=== PATIENT | female | born 1960 | race Two or more races ===

== ENCOUNTER 2024-10-26 07:38 | Emergency (ER) | payer BC ==
[~2024-10-26] VITALS: Ht 165.1 cm; Wt 61.2 kg
[2024-10-26] MEDS ORDERED: PROZAC10 MG PO (07:44)
[2024-10-26] MEDS ORDERED: LOSARTAN POTASS25 MG PO (07:44)
[2024-10-26] MEDS ORDERED: 0.9 % SODIUM CHLORIDE 1,000 ML IV ONE (09:15)
[2024-10-26] MEDS ORDERED: KETOROLAC TROMETHAMINE 15 MG VIAL IV ONE (09:15)
[2024-10-26] MEDS ORDERED: PANTOPRAZOLE SODIUM 40 MG/VIAL VIAL IV PUSH ONE (09:15)
[2024-10-26] MEDS ORDERED: ONDANSETRON HCL 2 MG/ML VIAL IV ONE (09:15)
[2024-10-26] MEDS ORDERED: CIPROFLOXACIN IN 5 % DEXTROSE 400 MG/200 ML PIGGYBAG IV ONE ×2 (09:15→09:23)
[2024-10-26] MEDS ORDERED: KETOROLAC TROMETHAMINE 30 MG VIAL ONE (09:23)
[2024-10-26] MEDS ORDERED: ONDANSETRON HCL 2 MG/ML VIAL ONE (09:23)
[2024-10-26 09:53] LABS: HEMATOCRIT 32.4 % (36.0-45.00); MEAN CORPUSCULAR HEMOGLOBIN 34.3 pg (27.00-32.0); MEAN CORPUSCULAR HGB CONC 33.9 g/dl (32.0-36.0); PLATELET COUNT 198 K/uL (150-450); RED BLOOD COUNT 3.21 M/uL (4.00-6.00); RED CELL DISTRIBUTION WIDTH 15.8 % (11.5-14.5)
[2024-10-26 10:23] LABS: ALBUMIN 4.3 gm/dL (3.4-5.0); BILIRUBIN TOTAL 1.67 mg/dL (0.3-1.2); CALCIUM 10.2 mg/dL (8.5-10.1); CREATININE SERUM 1.08 mg/dL (0.55-1.02); GFR 51.24; GLOBULINA 4.4 G/DL (2.4-3.5); POTASSIUM 3.49 mEq/L (3.5-5.1); TOTAL PROTEIN 8.7 gm/dL (6.4-8.2)
[2024-10-26 10:23] LABS: URINE APPEARANCE Clear; URINE BILIRRUBIN Negative (NEGATIVE); URINE BLOOD Negative; URINE COLOR Yellow; URINE GLUCOSE Negative (NEGATIVE); URINE KETONE Trace (NEGATIVE); URINE LEUKOCYTE Small; URINE NITRATE Negative; URINE PROTEIN 30 (NEGATIVE)
[2024-10-26 10:28] LABS: URINE BACTERIA 1774.7 uL (0.0-1933); URINE CAST 1.47 uL (0.0-1.40); URINE WBC 64.1 uL (0.0-23.2)
[2024-10-26] MEDS ORDERED: HYOSCYAMINE SULFATE 0.125 MG TAB.SUBL SL ONE (12:00)
[2024-10-26] MEDS ORDERED: TAMSULOSIN HCL 0.4 MG CAP PO ONE ×2 (12:00→12:10)
[2024-10-26] MEDS ORDERED: HYOSCYAMINE SULFATE 0.125 MG TAB.SUBL ONE (12:10)
== END 2024-10-26 12:16 | disposition home or self-care (01) ==
LOC: ER 07:41
PROVIDERS: General Practice
DX: N20.1 Calculus of ureter (principal); I10 Essential (primary) hypertension; Z88.8 Allergy status to other drugs, medicaments and biological substances